=== PATIENT | female | born 1965 | race African-American/Black ===

== ENCOUNTER 2024-06-02 10:54 | Emergency (ER) | payer MEDICARE ==
[~2024-06-02] VITALS: Ht 160 cm; Wt 99.8 kg
[2024-06-02 10:55] VITALS: PULSE 80; RESP 16; TEMP 97.1; O2SAT 100
== END 2024-06-02 12:50 | disposition home or self-care (01) ==
LOC: ER 10:57
DX: M79.662 Pain in left lower leg (principal); Z96.652 Presence of left artificial knee joint; I10 Essential (primary) hypertension; R73.03 Prediabetes; E78.5 Hyperlipidemia, unspecified
CPT/HCPCS: 93971; 99283